=== PATIENT | female | born 1990 | race Caucasian/White ===

== ENCOUNTER 2017-10-31 06:49 | Emergency (ER) | payer OTHER ==
[~2017-10-31] VITALS: Ht 160 cm; Wt 58.1 kg
[2017-10-31] MEDS ORDERED: KEPPRA750 MG PO (07:12)
[2017-10-31] MEDS ORDERED: LAMICTAL100 MG PO (07:12)
[2017-10-31] MEDS ORDERED: NORCO 5-325 TA1 EACH PO (08:08)
[2017-10-31] MEDS ORDERED: IBUPROFEN 800800 M1 PO (08:08)
[2017-10-31 08:20] VITALS: BP 124/78
== END 2017-10-31 08:21 | disposition home or self-care (01) ==
LOC: M.ERS 06:49
DX: S83.8X2A Sprain of other specified parts of left knee, initial encounter (principal); Z91.040 Latex allergy status; W01.0XXA Fall on same level from slipping, tripping and stumbling without subsequent striking against object, initial encounter; Y93.89 Activity, other specified; Y92.89 Other specified places as the place of occurrence of the external cause; Y99.8 Other external cause status